=== PATIENT | female | born 1960 | race Two or more races ===

== ENCOUNTER → 2024-10-28 | Emergency (ER) | payer BC ==
[~2024-10-28] VITALS: Ht 149.9 cm; Wt 45.4 kg
[~2024-10-28] MED LIST: CARVEDILOL ER40 MG PO; CEFTRIAXONE SODIUM 1,000 MG VIAL IV STA; ISOSORBIDE DINI30 MG PO; METHYLPREDNISOLONE SOD SUCC 125 MG VIAL IV STA; PLAVIX75 MG PO; ROSUVASTATIN CA20 MG PO; TIMOLOL MALEATE5 M3 OP; ZESTRIL10 M1 PO
[2024-10-28 20:11] LABS: HEMATOCRIT 48.7 % (36.0-45.00); MEAN CELL VOLUME 89.9 fL (80.00-100.00); MEAN CORPUSCULAR HEMOGLOBIN 29.6 pg (27.00-32.0); MEAN CORPUSCULAR HGB CONC 32.9 g/dl (32.0-36.0); PLATELET COUNT 270 K/uL (150-450); RED BLOOD COUNT 5.41 M/uL (4.00-6.00); RED CELL DISTRIBUTION WIDTH 14.7 % (11.5-14.5)
[2024-10-28 20:33] LABS: ALBUMIN 3.6 gm/dL (3.4-5.0); BILIRUBIN TOTAL 0.43 mg/dL (0.3-1.2); CALCIUM 9.5 mg/dL (8.5-10.1); CREATININE SERUM 0.77 mg/dL (0.55-1.02); GFR 75.71; GLOBULINA 4.1 G/DL (2.4-3.5); POTASSIUM 4.23 mEq/L (3.5-5.1); TOTAL PROTEIN 7.7 gm/dL (6.4-8.2)
[2024-10-29 05:24] LABS: ABG PH 7.444 (7.35-7.45); ABG PO2 70.1 mmHg (80-100); ABG pCO2 35.1 mmHg (35-45); BASE EXCESS 0 mmol/l; BICARBONATE 23.5 mmol/l (23-25)
[2024-10-29 05:25] LABS: Tco2 24.6 mmol/l; allen test SATISFACTORY; o2 21 %; puncture site RADIAL LEFT
[2024-10-29 05:26] LABS: SaO2 94.6 %
[2024-10-29 08:05] LABS: PARTIAL THROMBOPLASTIN TIME 25.4 SECONDS (22.0-34.0); PROTHROMBIN TIME 10.9 SECONDS (9.0-11.5)
== END | disposition left against medical advice (07) ==
LOC: ER 17:29
PROVIDERS: General Practice; Preventive Medicine Public Health & General Preventive Medicine
DX: J18.8 Other pneumonia, unspecified organism (principal); I10 Essential (primary) hypertension